=== PATIENT | female | born 1945 | race Caucasian/White ===

== ENCOUNTER 2017-01-15 00:50 | Emergency (ER) | payer MEDICARE ==
--- NOTE | 2017-01-15 01:14 | EDM.PDOC ---
ED HPI GENERAL MEDICAL PROBLEM - General Chief Complaint: Cardiovascular Problem Stated Complaint: HIGH BLOOD PRESSURE Time Seen by Provider: 01/15/17 01:07 Source of Information: Reports: Family, Teaching Young - History of Present Illness INITIAL COMMENTS - FREE TEXT/NARRATIVE: This pleasant [place] woman presented today because her blood pressure at home was 200/ diastolic. She has no chest pain, dyspnea or neurologic deficit She is taking her lisinopril/hctz faithfully. Headache Pain Score (Numeric/FACES): 3 - Related Data Allergies Allergy/AdvReac Type Severity Reaction Status Date / Time No Known Allergies Allergy Verified 01/15/17 01:03 Past Medical History Cardiovascular History: Reports: Hypertension ED ROS GENERAL - Review of Systems Review Of Systems: See Below Constitutional: Denies: Fever Respiratory: Denies: Shortness of Breath Cardiovascular: Denies: Chest Pain ED EXAM, GENERAL - Physical Exam Exam: See Below Free Text/Narrative:: alert NAD lungs CTA heart RRR without m abdomen non tender EKG: NSR with q waves inferiorly i checked her blood pressure with her blood pressure cuff with resultant reading 161/92; concurrent blood pressure reading with our cuff is 140/82 mm Hg. Course - Vital Signs Last Recorded V/S: Last Vital Signs Temp 97.8 F 01/15/17 01:03 Pulse 62 01/15/17 01:03 Resp 16 01/15/17 01:03 BP 121/76 01/15/17 01:03 Pulse Ox 98 01/15/17 01:03 - Re-Assessments/Exams Free Text/Narrative Re-Assessment/Exam: 01/15/17 01:23 I advised that there may be an inaccuracy in her home blood pressure cuff. She has had the cuff for two years. I advised buying a new cuff and follow up with her doctor when she gets home to [place], [place] where she lives. She is up in [place] visiting her son. Departure - Departure Time of Disposition: 01:23 Disposition: Home, Self-Care 01 Condition: Good Clinical Impression: History of hypertension Referrals: PCP,None [Primary Care Provider] - Additional Instructions: be sure to follow up with your doctor when you get home. Bring a copy of your ER records from today and a copy of your EKG get a new blood pressure cuff.
== END 2017-01-15 01:35 | disposition home or self-care (01) ==
LOC: MW.ED 00:50
DX: I10 Essential (primary) hypertension (principal)
CPT/HCPCS: 93005; 99283; 99284-25